=== PATIENT | male | born 1970 | race Caucasian/White ===

== ENCOUNTER 2020-02-10 01:22 | Emergency (ER) | payer MEDICAID ==
[~2020-02-10] VITALS: Ht 188 cm; Wt 93.0 kg
[2020-02-10] MEDS ORDERED: Cleocin HCl300 MG PO (02:33)
== END 2020-02-10 04:46 | disposition home or self-care (01) ==
LOC: ER 01:22
DX: L03.114 Cellulitis of left upper limb (principal); Z87.891 Personal history of nicotine dependence
CPT/HCPCS: 36415; 96365; 96375; 99283-25; J1885; J7030

== ENCOUNTER 2022-12-25 16:39 | Inpatient (IN) | payer OTHER ==
[~2022-12-25] VITALS: Ht 188 cm; Wt 111.3 kg
[~2022-12-25 16:39] MED LIST: Cleocin HCl300 MG PO
[2022-12-25 17:24] LABS: BASOPHILS ABSOLUTE AUTO 0.19 K/mm3 (0.00-0.23); BASOPHILS PERCENT AUTO 1 % (0-2); EOSINOPHILS ABSOLUTE AUTO 0.02 K/mm3 (0.00-0.68); EOSINOPHILS PERCENT AUTO 0 % (0-6); Hematocrit 38.6 % (37.0-53.0); Hemoglobin 13.2 g/dL (13.5-17.5); IMMATURE GRAN ABSOLUTE AUTO 0.66 K/mm3 (0.00-0.10); IMMATURE GRAN PERCENT AUTO 2 % (0-1); LYMPHOCYTES PERCENT AUTO 3 % (21-46); MONOCYTES ABSOLUTE AUTO 1.43 K/mm3 (0.16-1.47); MONOCYTES PERCENT AUTO 4 % (4-13); Mean Corpuscular HGB 29.6 pg (26.0-34.0); Mean Corpuscular HGB Conc 34.2 g/dL (31.5-36.5); Mean Corpuscular Volume 87 fL (80-100); NEUTROPHILS ABSOLUTE AUTO 29.04 K/mm3 (1.96-9.15); NEUTROPHILS PERCENT AUTO 90 % (41-73); Platelet Count 250 K/mm3 (150-400); RDW Coefficient Variation 13.3 % (11.7-14.2); RDW Standard Deviation 41.7 fL (35.1-46.3); Red Blood Cell Count 4.46 M/mm3 (4.30-5.90); White Blood Cell Count 32.24 K/mm3 (4.00-11.30)
[2022-12-25 18:12] LABS: Alanine Aminotransfer (ALT/SGP 40 U/L (12-78); Albumin, Blood 3.7 g/dL (3.4-5.0); Albumin/Globulin Ratio 0.9 (0.8-1.8); Alk Phos 100 U/L (50-136); Anion Gap 8 mmol/L (6-16); Aspartate Aminotrans (AST/SGOT 45 U/L (12-37); Bilirubin, Total 0.6 mg/dL (0.1-1.0); Blood Urea Nitrogen 18 mg/dL (8-24); Bun/Creatinine Ratio 15.4 (12.0-20.0); C-REACTIVE PROTEIN, EXT RANGE >19.000 mg/dL (0.000-0.300); CO2, Blood 23 mmol/L (21-32); Calcium, Blood 8.9 mg/dL (8.5-10.1); Chloride, Blood 96 mmol/L (98-108); Creatinine, Blood 1.17 mg/dL (0.60-1.20); Globulin, Blood 4.2 g/dL (2.2-4.0); Glomerular Filtration Rate 75 (60-); Glucose, Blood 103 mg/dL (70-99); Potassium, Blood 3.6 mmol/L (3.5-5.5); Sodium, Blood 127 mmol/L (136-145); Total Protein, Blood 7.9 g/dL (6.4-8.2)
[2022-12-26 01:00] VITALS: BP 101/54
--- NOTE | 2022-12-26 02:22 | NUR ---
PATIENT IS A NEW ADMIT FROM THE ED. AXOX 4 AND INDEPENDENT TRANSFER FROM [facility] TO BED. ON ROOM AIR. IV FLUIDS AND IV ABX INFUSING FROM THE ED. RIGHT THIGH CELLULITIS BORDER MARKED IN ED. REPORTS POSSIBLE SPIDER BITE. CONSENT TO PHOTOGRAPH SIGNED AND PHOTOS TAKEN. DENIES CHEST PAIN, SOB, AND N/V. TELEMETRY PLACED AND ST 104. GIRL FRIEND PRESENT ON ADMIT AND STAYED FOR AN HOUR BEFORE LEAVING. PSORIASIS NOTED/REPORTED ON BUE. ORIENTED TO ROOM AND CALL LIGHT. WATCHING TV AFTER ASSESSMENT. WCTM.
[2022-12-26 03:19] VITALS: BP 105/61
[2022-12-26 04:50] LABS: BASOPHILS ABSOLUTE AUTO 0.08 K/mm3 (0.00-0.23); BASOPHILS PERCENT AUTO 0 % (0-2); EOSINOPHILS ABSOLUTE AUTO 0.09 K/mm3 (0.00-0.68); EOSINOPHILS PERCENT AUTO 0 % (0-6); Hematocrit 34.4 % (37.0-53.0); Hemoglobin 11.8 g/dL (13.5-17.5); IMMATURE GRAN ABSOLUTE AUTO 0.56 K/mm3 (0.00-0.10); IMMATURE GRAN PERCENT AUTO 2 % (0-1); LYMPHOCYTES ABSOLUTE AUTO 0.67 K/mm3 (0.84-5.20); LYMPHOCYTES PERCENT AUTO 3 % (21-46); MONOCYTES ABSOLUTE AUTO 0.99 K/mm3 (0.16-1.47); MONOCYTES PERCENT AUTO 4 % (4-13); Mean Corpuscular HGB 29.7 pg (26.0-34.0); Mean Corpuscular HGB Conc 34.3 g/dL (31.5-36.5); Mean Corpuscular Volume 87 fL (80-100); NEUTROPHILS ABSOLUTE AUTO 20.52 K/mm3 (1.96-9.15); NEUTROPHILS PERCENT AUTO 90 % (41-73); Platelet Count 194 K/mm3 (150-400); RDW Coefficient Variation 13.3 % (11.7-14.2); RDW Standard Deviation 42.4 fL (35.1-46.3); Red Blood Cell Count 3.97 M/mm3 (4.30-5.90); White Blood Cell Count 22.91 K/mm3 (4.00-11.30)
--- NOTE | 2022-12-26 05:03 | NUR ---
SHIFT SUMMARY PATIENT HAD NO ACUTE CHANGES. AXOX 4 AND INDEPENDENT IN ROOM. REPORTED RIGHT LEG PAIN X ONE AND IV FENTANYL 50 MCG GIVEN PER EMAR WITH GOOD EFFECT. PIV REMAINS INTACT. NS INFUSING AT 75 mL/HR X ONE BAG. IV ABX INFUSED. TELE MONITOR ST 104. SLEPT MOST OF SHIFT. COOPERATIVE WITH CARE. CALL LIGHT IN REACH. BED IN LOWEST POSITION. WILL CONTINUE TO MONITOR UNTIL DAY SHIFT NURSE ASSUMES CARE.
[2022-12-26 06:30] LABS: Albumin, Blood 2.9 g/dL (3.4-5.0); Albumin/Globulin Ratio 0.8 (0.8-1.8); Bilirubin, Total 0.6 mg/dL (0.1-1.0); Bun/Creatinine Ratio 15.8 (12.0-20.0); Calcium, Blood 8.3 mg/dL (8.5-10.1); Creatinine, Blood 1.2 mg/dL (0.60-1.20); Globulin, Blood 3.7 g/dL (2.2-4.0); Total Protein, Blood 6.6 g/dL (6.4-8.2)
[2022-12-26 07:27] VITALS: BP 115/70
--- NOTE | 2022-12-26 10:43 | NUR ---
DR KIMBALL NOTIFIED POTASSIUM ON EMAR THIS AM GIVEN AROUND 0600. PER DR KIMBALL DISREGARD THE O730 DOSING ORDER. PATIENT ONLY NEEDS 40MEQ POTASSIUM 1 TIME.
[2022-12-26 11:48] VITALS: BP 105/67
[2022-12-26 15:42] VITALS: BP 117/71
--- NOTE | 2022-12-26 17:53 | NUR ---
SHIFT SUMMARY PATIENT AOX4 CALLS APPROPRIATELY. TEMP UP TO 102.7 TYLENOL GIVEN, ICE PACKS AND RECHECK IN 25 MINURES WAS 98.9. PAIN WELL CONTROLLED WITH TYELENOL ONLY. BED IN LOW POSITION, CALL LIGHT IN REACH. PATIENT INDEPENDENT IN ROOM.
--- NOTE | 2022-12-26 18:10 | NUR ---
THIS SECONDARY SCHOOL TEACHER LIBRARIAN HAS REVIEWED AND AGREES WITH ALL NOTES AND ASSESSMENTS BY LASHELL OMARI.
[2022-12-26 19:56] VITALS: BP 114/60
--- NOTE | 2022-12-27 04:21 | NUR ---
SHIFT SUMMARY PATIENT HAD NO ACUTE CHANGES. AXOX 4 AND INDEPENDENT IN ROOM. DENIES CHEST PAIN, SOB, AND N/V. DID NOT REPORT RIGHT LEG PAIN. PIV REMAINS INTACT. IV ABX INFUSED. VSS/FEBRILE WITH TEMP 101.2 AND TYLENOL 650 GIVEN AND 99.2 ON RECHECK. COOPERATIVE WITH CARE. CALL LIGHT IN REACH. BED IN LOWEST POSITION. WILL CONTINUE TO MONITOR UNTIL DAY SHIFT NURSE ASSUMES CARE.
[2022-12-27 04:25] VITALS: BP 102/68
[2022-12-27 07:39] VITALS: BP 112/69
[2022-12-27 09:17] LABS: BASOPHILS ABSOLUTE AUTO 0.06 K/mm3 (0.00-0.23); BASOPHILS PERCENT AUTO 0 % (0-2); EOSINOPHILS ABSOLUTE AUTO 0.16 K/mm3 (0.00-0.68); EOSINOPHILS PERCENT AUTO 1 % (0-6); Hematocrit 36.4 % (37.0-53.0); Hemoglobin 11.9 g/dL (13.5-17.5); IMMATURE GRAN PERCENT AUTO 3 % (0-1); LYMPHOCYTES ABSOLUTE AUTO 0.93 K/mm3 (0.84-5.20); LYMPHOCYTES PERCENT AUTO 5 % (21-46); MONOCYTES ABSOLUTE AUTO 1.19 K/mm3 (0.16-1.47); MONOCYTES PERCENT AUTO 7 % (4-13); Mean Corpuscular HGB 28.7 pg (26.0-34.0); Mean Corpuscular HGB Conc 32.7 g/dL (31.5-36.5); Mean Corpuscular Volume 88 fL (80-100); Mean Platelet Volume 10.2 fL (9.1-12.4); NEUTROPHILS ABSOLUTE AUTO 15.29 K/mm3 (1.96-9.15); NEUTROPHILS PERCENT AUTO 84 % (41-73); Platelet Count 196 K/mm3 (150-400); RDW Coefficient Variation 13.6 % (11.7-14.2); RDW Standard Deviation 43.9 fL (35.1-46.3); Red Blood Cell Count 4.14 M/mm3 (4.30-5.90); White Blood Cell Count 18.23 K/mm3 (4.00-11.30)
[2022-12-27 09:30] LABS: Vancomycin, Trough 17.8 ug/mL (5.0-10.0)
[2022-12-27 09:37] LABS: Albumin, Blood 2.5 g/dL (3.4-5.0); Anion Gap 8 mmol/L (6-16); Blood Urea Nitrogen 14 mg/dL (8-24); Bun/Creatinine Ratio 9.2 (12.0-20.0); CO2, Blood 23 mmol/L (21-32); Calcium, Blood 8.5 mg/dL (8.5-10.1); Chloride, Blood 104 mmol/L (98-108); Creatinine, Blood 1.52 mg/dL (0.60-1.20); Glomerular Filtration Rate 54 (60-); Glucose, Blood 152 mg/dL (70-99); Phosphorus, Blood 1.2 mg/dL (2.5-4.9); Potassium, Blood 3.3 mmol/L (3.5-5.5); Sodium, Blood 135 mmol/L (136-145)
--- NOTE | 2022-12-27 13:09 | NUR ---
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 WOUND IS ATYPICAL IN PRESENTATION WITH 0.5 DARK PURPLE KIRAN-WOUND. ERYTHEMA WELL BEYOND ORIGINAL MARKED BORDERS. PT FEBRILE. PT REPORTS INCREASED PAIN TODAY RADIATING "IN HIS GROIN" BLOOD CULTURES POSITIVE FOR STREP A WICH IS THOUGHT TO BE A LEADING CAUSE OF NEC FACS. THIS RN DOES NOT SEE THAT A WOUND CULTURE HAS BEEN OBTAINED. GIVEN CONCERN WOUND RN WILL DEFER TO HOSPITALIST/SURGICAL. PRIMARY RN AND DR. KIMBALL NOTIFIED OF CONCERN. SURGICAL CONSULT PLACED. SURGICAL CONSULT PLACED.
[2022-12-27 15:55] VITALS: BP 112/62
--- NOTE | 2022-12-27 18:08 | NUR ---
SHIFT SUMMMARY AOX4. INDEPENDENT IN ROOM. DENIES HEADACHE TODAY. TEMP TRENDING DOWNWARD TO 99.7 TODAY WITHOUT TYLENOL AT THIS TIME. PATIENT CALLS APPROPRIATELY. CONTINUING WITH ANTIBIOTICS AND OTHER MEDICATIONS PER EMAR.
[2022-12-27 20:41] VITALS: BP 120/79
--- NOTE | 2022-12-28 04:25 | NUR ---
TARGET WORKER SUMMARY PT A/OX4. NO ACUTE CHANGES. ABLE TO MAKE NEEDS KNOWN. CELLULITIS/WOUND ON RT THIGH MARKED; REDNESS WITHIN BOARDER. PT REPORTED GENERALLY FEELING BETTER. APPLIED PRN OINTMENT TO WOUND; WOUND DRY, NO EXUDATE; OPEN TO AIR PER PT REQUEST.
[2022-12-28 04:40] VITALS: BP 103/69
[2022-12-28 04:54] LABS: Hematocrit 37.4 % (37.0-53.0); Hemoglobin 12.4 g/dL (13.5-17.5); Mean Corpuscular HGB 29.2 pg (26.0-34.0); Mean Corpuscular HGB Conc 33.2 g/dL (31.5-36.5); Mean Corpuscular Volume 88 fL (80-100); Mean Platelet Volume 10.4 fL (9.1-12.4); Platelet Count 220 K/mm3 (150-400); RDW Coefficient Variation 13.5 % (11.7-14.2); RDW Standard Deviation 43.9 fL (35.1-46.3); Red Blood Cell Count 4.24 M/mm3 (4.30-5.90)
[2022-12-28 05:10] LABS: Bun/Creatinine Ratio 10.7 (12.0-20.0); Calcium, Blood 8.7 mg/dL (8.5-10.1); Creatinine, Blood 1.49 mg/dL (0.60-1.20); Potassium, Blood 3.5 mmol/L (3.5-5.5)
[2022-12-28 07:48] VITALS: BP 106/70
[2022-12-28 16:23] VITALS: BP 118/63
--- NOTE | 2022-12-28 17:28 | NUR ---
SHIFT SUMMARY: PT A&O X4. PT HAS BEEN PLEASANT AND COOPERATIVE THIS SHIFT. NO ACUTE CHANGES THIS SHIFT. PT STATES HE HAS BEEN IN LESS PAIN THAN PREVIOUS DAYS. STATES HE BELIEVES ABX ARE WORKING WELL. PT ABLE TO TRANSFER INDEPENDENTLY. WOUND DRY. REDNESS REMAINS WITHIN BORDER OF MARKED AREA. CALL LIGHT IN REACH. WILL CONTINUE TO MONITOR.
[2022-12-28 19:08] VITALS: BP 116/70
--- NOTE | 2022-12-29 04:35 | NUR ---
SHIFT SUMMERY, PT RESTED IN BED AND APPEARD TO BE SLEEPING MOST OF SHIFT. REDNESS TO RIGHT INNER THIGH APPEARS TO BE RETEATING FROM WHERR LINES ARE DRAWN ON PTS LEG. PT GIVEN A SNACK BEFORE BED AND DENIED ANY OTHER NEEDS. CALL LIGHT IN REACH.
[2022-12-29 05:13] VITALS: BP 107/68
[2022-12-29 08:34] VITALS: BP 121/71
[2022-12-29 16:15] VITALS: BP 123/77
--- NOTE | 2022-12-29 18:10 | NUR ---
SHIFT SUMMARY: PT A&O. PT VERY PLEASANT AND COOPERATIVE WITH CARE. NO ACUTE CHANGES WITH PT THIS SHIFT. VSS. IV PATENT AND FLUSHING WELL. PT INDEPENDENT IN ROOM. PT STATES PAIN IS A 2/10 ALL SHIFT. REDNESS WITHIN BORDERED OUTLINE. TELE D/C. CALL LIGHT IN REACH. WILL CONTINUE TO MONITOR.
[2022-12-29 20:23] VITALS: BP 116/86
[2022-12-30 03:00] VITALS: BP 120/77
--- NOTE | 2022-12-30 05:09 | NUR ---
SHIFT SUMMARY 52 YR M ADMITTED ON 12/25/22 FOR CELLULITIS OF UPPER RIGHT INNER THIGH. FULL CODE. NO ACUTE CHANGES THIS SHIFT. PT IS A&O X 4 AND IS FULLY INDEPENDANT IN THE ROOM. PT STATED THAT HE JUST WANTED TO SLEEP THROUGHOUT THE NIGHT SO HIS DOOR WAS CLOSED AND HE SLEPT FOR MOST OF THE SHIFT. PLAN IS FOR HIM TO DISCHARGE TODAY.
[2022-12-30 05:43] LABS: Hemoglobin 11.8 g/dL (13.5-17.5); Mean Corpuscular HGB 28.9 pg (26.0-34.0); Mean Corpuscular HGB Conc 32.8 g/dL (31.5-36.5); Mean Corpuscular Volume 88 fL (80-100); Mean Platelet Volume 10.1 fL (9.1-12.4); Platelet Count 315 K/mm3 (150-400); RDW Coefficient Variation 13.5 % (11.7-14.2); RDW Standard Deviation 43.6 fL (35.1-46.3); Red Blood Cell Count 4.09 M/mm3 (4.30-5.90); White Blood Cell Count 13.77 K/mm3 (4.00-11.30)
[2022-12-30 06:10] LABS: Bun/Creatinine Ratio 11.5 (12.0-20.0); Calcium, Blood 8.4 mg/dL (8.5-10.1); Creatinine, Blood 1.3 mg/dL (0.60-1.20); Potassium, Blood 3.4 mmol/L (3.5-5.5)
[2022-12-30 07:54] VITALS: BP 118/84
[2022-12-30] MEDS ORDERED: MIRALAX17 GM PO (12:47)
[2022-12-30] MEDS ORDERED: MUPIROCIN1 G1 TOP (12:47)
[2022-12-30] MEDS ORDERED: OXYC5 PO (12:47)
[2022-12-30] MEDS ORDERED: VISBIOME 112.51 EACH PO (12:48)
[2022-12-30] MEDS ORDERED: AMOCLA875 PO (12:49)
--- NOTE | 2022-12-30 15:22 | NUR ---
DISCHARGE NOTE- PT WAS GIVEN VERBAL AND WRITTEN DISCHARGEINSTRUCTIONS AND ACKNOWLEDGED UNDERSTANDING OF THEM. IV DC'D AT THE TIME OF EDUCATION. PT RID SCHEDULED TO ARRIVE AFTER 4PM. PT INSTRUCTED TO PRESS THE CALL BUTTON WHEN HIS RIDE ARRIVES SO THAT STAFF CAN ESCORT HIM OUT VIA WC.
== END 2022-12-30 17:02 | disposition home or self-care (01) | DRG 872 ==
LOC: ER 16:39 → MEDS 23:41
PROVIDERS: Internal Medicine; Physician Assistant; ADMIT Internal Medicine
DX: A40.0 Sepsis due to streptococcus, group A (principal); L03.115 Cellulitis of right lower limb; I96 Gangrene, not elsewhere classified; E87.1 Hypo-osmolality and hyponatremia; T63.331A Toxic effect of venom of brown recluse spider, accidental (unintentional), initial encounter; Z87.2 Personal history of diseases of the skin and subcutaneous tissue
CPT/HCPCS: 36415; 73701; 80048; 80053; 80069; 80202; 83605; 85025; 85027; 86140; 87040; 87147; 96374-59; 96375-59; 99284-25; A9270; J0295; J0692; J0696; J1650; J2543; J3010; J3370; J7030; J7050; Q9967